=== PATIENT | male | born 1980 | race Caucasian/White ===

== ENCOUNTER 2021-07-27 07:47 | Emergency (ER) | payer OTHER ==
[~2021-07-27 07:47] MED LIST: CLEOCIN 150MG150 MG PO; CLINDAMYCIN HC300 MG PO; DOXYCYCLINE HY100 MG PO; GLUCOTROL 10 MG10 MG PO; LEVAQUIN500 MG PO; LISINOPRIL20 MG PO; LODINE CAP 300300 MG PO; LOPRESSOR 50 MG50 MG PO; METFORMIN HCL850 MG PO; NYSTOP60 GM TOP; PROTONIX40 MG PO; ULTRAM50 MG PO
[2021-07-27 09:16] LABS: HEMOGLOBIN 15.6 gm/dl (14.0-17.5); RED BLOOD COUNT 5.34 M/UL (4.20-5.50); WHITE BLOOD COUNT 12.1 K/UL (4.5-11.0)
[2021-07-27 09:37] LABS: BUN/CREATININE RATIO 17 (0-10)
[2021-07-27] MEDS ORDERED: ZOFRAN ODT 4 MG4 MG GT (11:35)
[2021-07-27] MEDS ORDERED: HYDROCODON-ACE1 EAC4 PO (12:03)
== END 2021-07-27 12:35 | disposition home or self-care (01) ==
LOC: ER1 07:47
PROVIDERS: Physician Assistant
DX: N20.0 Calculus of kidney (principal); E11.9 Type 2 diabetes mellitus without complications; I10 Essential (primary) hypertension; Z88.0 Allergy status to penicillin; Z88.2 Allergy status to sulfonamides
CPT/HCPCS: 74018; 80053; 81001; 83690; 85025; 96374; 96375; 96376; 99284; J1885; J2405

== ENCOUNTER 2021-08-09 13:39 | Emergency (ER) | payer OTHER, MEDICAID ==
[~2021-08-09 13:39] MED LIST changes: +HYDROCODON-ACE1 EAC4 PO; +ZOFRAN ODT 4 MG4 MG GT
[2021-08-09 16:30] LABS: HEMOGLOBIN 15.1 gm/dl (14.0-17.5); RED BLOOD COUNT 5.16 M/UL (4.20-5.50); WHITE BLOOD COUNT 10.3 K/UL (4.5-11.0)
[2021-08-09 16:48] LABS: BUN/CREATININE RATIO 12 (0-10)
[2021-08-09] MEDS ORDERED: ZOFRAN 4 MG TAB4 MG PO (18:55)
[2021-08-09] MEDS ORDERED: HYDROCODON-ACE1 EAC4 PO (18:55)
== END 2021-08-09 19:17 | disposition home or self-care (01) ==
LOC: ER1 13:39
PROVIDERS: Preventive Medicine Occupational Medicine
DX: N13.2 Hydronephrosis with renal and ureteral calculous obstruction (principal); N23 Unspecified renal colic; I10 Essential (primary) hypertension; E11.9 Type 2 diabetes mellitus without complications
CPT/HCPCS: 80053; 81001; 85025; 85652; 86140; 87086; 96374; 96375; 99284; J1170; J2405